=== PATIENT | male | born 1975 | race Caucasian/White ===

== ENCOUNTER 2022-11-23 12:26 | Emergency (ER) | payer OTHER, SELFPAY ==
[2022-11-23] VITALS (8 sets, daily range): BP systolic 122–203; BP diastolic 90–128; PULSE 58–71; RESP 12–21; TEMP 36.6; O2SAT 100; BMI 31.8
--- NOTE | 2022-11-23 12:48 | ECG_ITS ---
[facility] Test Date: 2022-11-23 Pat Name: Ruben Claros Department: Room: - Gender: Male [employer]: : 1975 Requested By: [id number] Order Number: [id number] Reading MD: MAIRA MAN Measurements Intervals [place] Rate: 60 P: 23 NC: 240 QRS: 101 QRSD: 88 T: 4 QT: 418 QTc: 419 Interpretive Statements 1100 Sinus rhythm 2231 First degree AV block 7100 Abnormal right axis deviation Non-Specific T wave inversion in III 9150 abnormal ECG Compared to ECG 11/23/2022 13:04:36 Right-axis deviation now present Ventricular premature complex(es) no longer present Electronically Signed On 11-24-2022 6:51:28 EDT by MAIRA MAN
--- NOTE | 2022-11-23 12:49 | ED_ITS ---
HPI - General Adult General Chief complaint: Chest Pain Stated complaint: HIGH BLOOD PRESSURE Time Seen by Provider: 11/23/22 12:47 Source: patient Mode of arrival: walk-in History of Present Illness HPI narrative: patient here for evaluation of high blood pressure. He says been struggling with good blood pressure control for over twenty years. He stopped taking one medications that was prescribed in May by his PCP. He continues to take his beta owen. He is not use any [id number] beta stimulants. He avoids heavy caffeine products. He is pretty healthy and does not use much salt. He has not had a known history of cardiac, renal or central nervous system problems. He just can tell was blood pressures elevated because he just doesn't have the same energy. He does admit to using generous amounts of alcoholic products over the weekend. He is not having any shortness of breath or swelling of his legs. He's not had any blood work done for over a year and a half. His blood pressure was checked manually and his diastolics are near one twenty. Any confusion or headache or focal neurological symptomatology or deficits. Related Data Home Medications Medication Instructions Recorded Confirmed metoprolol succinate 100 mg 100 mg PO Q12H 11/23/22 11/23/22 tablet,extended release 24 hr Allergies Allergy/AdvReac Type Severity Reaction Status Date / Time No Known Drug Allergies Allergy Verified 11/23/22 12:37 Exam Narrative Exam Narrative: awake alert oriented ?3 blood pressure as noted. He's here with his . He admits to being highly anxious about this whole situation. HEENT shows eyes ears nose and throat to be grossly normal. Neck examination soft and supple no meningeal irritation no carotid bruits on either side. Respiratory his lungs are completely clear with no wheezes rales or rhonchi Cardio shows no clicks rubs or murmur. Extremities show no incident deep vein thrombosis phlebitis or edema. Back shows no evidence of bruises contusions or injury. Constitutional Vital Signs - 24 hr 11/23/22 12:31 11/23/22 09:58 11/23/22 12:32 Temperature 98 F Pulse Rate 58 L Pulse Rate [Monitor] 59 L Respiratory Rate 20 18 Blood Pressure 122/90 H 196/120 H Blood Pressure [Right Arm] 188/120 H Pulse Oximetry 100 Oxygen Delivery Method Room Air 11/23/22 13:06 11/23/22 13:06 11/23/22 13:15 Temperature Pulse Rate 60 70 Pulse Rate [Monitor] Respiratory Rate 14 21 Blood Pressure 185/128 H 185/128 H 203/109 H Blood Pressure [Right Arm] Pulse Oximetry Oxygen Delivery Method 11/23/22 13:29 11/23/22 13:30 11/23/22 13:45 Temperature Pulse Rate 71 64 64 Pulse Rate [Monitor] Respiratory Rate 13 15 12 Blood Pressure 173/119 H 160/107 H 141/104 H Blood Pressure [Right Arm] Pulse Oximetry Oxygen Delivery Method Course Vital Signs Vital signs: Vital Signs Blood Pressure 122/90 H 11/23/22 09:58 Temperature 98 F 11/23/22 12:31 Pulse Rate 64 11/23/22 13:45 Respiratory Rate 12 11/23/22 13:45 Blood Pressure 141/104 H 11/23/22 13:45 Pulse Oximetry 100 11/23/22 12:31 Oxygen Delivery Method Room Air 11/23/22 12:31 Medical Decision Making MDM Narrative Medical decision making narrative: patient here with elevation of his blood pressure at home. He was not able to take a 2nd blood pressure med prescribed May this year but is not related to his primary care yet. His EKG is normal and his urinalysis does not show any adrenergic agents. His kidney function tests are pending. He does feel better after giving him one dose of labetalol here. We had an extensive discussion about the need to be confirmative about taking care of himself with blood pressure checked on a daily basis and recording for his primary care doctor. He already avoid salt and has a pretty healthy diet. We want him to moderate alcohol intake. Lab Data Labs: Lab Results 11/23/22 Range/Units 13:09 WBC 6.7 (4.0-11.0) 10^3/uL RBC 5.10 (4.70-6.10) 10^6/uL Hgb 17.0 (14.0-18.0) g/dL Hct 47.2 (42.0-54.0) % MCV 92.5 (80.0-94.0) fL MCH 33.3 (25.9-34.0) pg MCHC 36.0 H (29.9-35.2) g/dL RDW 11.6 (11.0-15.0) % Plt Count 251 (150-450) 10^3/uL MPV 9.9 (9.5-13.5) fL Neut % (Auto) 55.0 (43.0-75.0) % Lymph % (Auto) 23.1 (20.5-60.0) % [place] % (Auto) 18.5 H (1.7-12.0) % Eos % (Auto) 1.9 (0.9-7.0) % Baso % (Auto) 0.6 (0.2-2.0) % Neut # (Auto) 3.7 (1.4-6.5) 10^3/uL Lymph # (Auto) 1.6 (1.2-3.8) 10^3/uL [place] # (Auto) 1.2 H (0.3-0.8) 10^3/uL Eos # (Auto) 0.1 (0.0-0.7) 10^3/uL Baso # (Auto) 0.0 (0.0-0.1) 10^3/uL Abs Immat Gran (auto) 0.06 H (0.00-0.03) 10^3/uL Imm/Tot Granulo (auto) 0.9 H (0.0-0.5) % Sodium 130 L (136-145) mmol/L Potassium 4.4 (3.5-5.1) mmol/L Chloride 95 L (98-107) mmol/L Carbon Dioxide 26.8 (21.0-32.0) mmol/L Anion Gap 12.6 BUN 13.0 (7.0-18.0) mg/dL Creatinine 1.08 (0.70-1.30) mg/dL Est GFR ( Amer) >60 (>=60) Est GFR (Non-Af Amer) >60 (>=60) BUN/Creatinine Ratio 12.0 Glucose 145 H (74-106) mg/dL Calcium 9.1 (8.5-10.1) mg/dL Troponin I High Sens <4.0 L (4.0-76.1) pg/mL Urine Opiates Screen Negative (NEGATIVE) Ur Buprenorphine Scrn Negative (NEGATIVE) Ur Oxycodone Screen Negative (NEGATIVE) Urine Methadone Screen Negative (NEGATIVE) Ur Propoxyphene Screen Negative (NEGATIVE) Ur Barbiturates Screen Negative (NEGATIVE) U Tricyclic Antidepress Negative (NEGATIVE) Ur Phencyclidine Scrn Negative (NEGATIVE) Ur Amphetamines Screen Negative (NEGATIVE) U Methamphetamines Scrn Negative (NEGATIVE) U Benzodiazepines Scrn Negative (NEGATIVE) Urine Cocaine Screen Negative (NEGATIVE) U Cannabinoids Screen Negative (NEGATIVE) Discharge Plan Discharge Chief Complaint: Chest Pain Clinical Impression: Hypertension Patient Disposition: Home, Self-Care Time of Disposition Decision: 14:00 Prescriptions / Home Meds: No Action metoprolol succinate 100 mg tablet extended release 24 hr 100 mg PO Q12H Instructions: Hypertension (ED) Additional Instructions: see her doctor this week so he can decide if secondary therapy will be necessary Stand Alone Forms: Portal Instructions Referrals: Heladio Noriega MD [Primary Care Provider] - 1 week
[2022-11-23 13:21] LABS: Basophils Percent Auto 0.6 % (0.2-2.0); Eosinophils Absolute Auto 0.1 10^3/uL (0.0-0.7); Eosinophils Percent Auto 1.9 % (0.9-7.0); Hematocrit 47.2 % (42.0-54.0); Immature Granulocytes Abs Auto 0.06 10^3/uL (0.00-0.03); Immature Granulocytes Pct Auto 0.9 % (0.0-0.5); Lymphocytes Absolute Auto 1.6 10^3/uL (1.2-3.8); Lymphocytes Percent Auto 23.1 % (20.5-60.0); Mean Corpuscular Hemoglobin 33.3 pg (25.9-34.0); Mean Corpuscular Volume 92.5 fL (80.0-94.0); Mean Platelet Volume 9.9 fL (9.5-13.5); Monocytes Absolute Auto 1.2 10^3/uL (0.3-0.8); Monocytes Percent Auto 18.5 % (1.7-12.0); Neutrophils Absolute Auto 3.7 10^3/uL (1.4-6.5); Platelet Count 251 10^3/uL (150-450); Red Cell Distribution Width 11.6 % (11.0-15.0); White Blood Count 6.7 10^3/uL (4.0-11.0)
[2022-11-23] MEDS: LABETALOL HCL 20 MG/4 ML SYRINGE IVP (13:31)
[2022-11-23 13:39] LABS: Anion Gap 12.6; Calcium 9.1 mg/dL (8.5-10.1); Carbon Dioxide 26.8 mmol/L (21.0-32.0); Chloride 95 mmol/L (98-107); Estimated GFR (African America >60 (>=60); Estimated GFR (Non-African Ame >60 (>=60); Glucose 145 mg/dL (74-106); Potassium 4.4 mmol/L (3.5-5.1); Sodium 130 mmol/L (136-145); Troponin I High Sensitivity <4.0 pg/mL (4.0-76.1)
[2022-11-23 13:41] LABS: Cannabinoid Screen Urine NEGATIVE (NEGATIVE)
[2022-11-23 13:42] LABS: Amphetamine Screen Urine NEGATIVE (NEGATIVE); Barbiturates Screen Urine NEGATIVE (NEGATIVE); Benzodiazepines Screen Urine NEGATIVE (NEGATIVE); Buprenorphine Screen Urine NEGATIVE (NEGATIVE); Cocaine Screen Urine NEGATIVE (NEGATIVE); Methadone Screen Urine NEGATIVE (NEGATIVE); Methamphetamines Screen Urine NEGATIVE (NEGATIVE); Opiate Screen Urine NEGATIVE (NEGATIVE); Oxycodone Screen Urine NEGATIVE (NEGATIVE); Phencyclidine Screen Urine NEGATIVE (NEGATIVE); Tricyclic Antidepressant Urine NEGATIVE (NEGATIVE)
[2022-11-23 13:47] LABS: Bilirubin Urine NEGATIVE (NEGATIVE); Blood Urine NEGATIVE (NEGATIVE); Clarity Urine CLEAR (CLEAR); Color Urine YELLOW (YELLOW); Glucose Urine UA NEGATIVE (NEGATIVE); Ketones Urine NEGATIVE (NEGATIVE); Leukocyte Esterase Urine SMALL (NEGATIVE); Nitrite Urine NEGATIVE (NEGATIVE); Protein Urine NEGATIVE (NEG/TRACE); pH Urine 7.5 (5.0-9.0)
[2022-11-23 14:00] LABS: Bacteria Urine NONE SEEN #/HPF (NONE SEEN); Cast Seen? NONE SEEN #/LPF (NONE SEEN); Crystals Seen? None Seen #/HPF (None Seen); Mucus Urine TRACE (NONE SEEN); RBC Urine 0-2 #/HPF (0-2); Squamous Epithelial Cell Urine RARE #/LPF (NONE/RARE)
== END 2022-11-23 14:07 | disposition home or self-care (01) ==
PROVIDERS: Emergency Provider Emergency Medicine Emergency Medical Services; PCP Family Medicine
DX: I10 Essential (primary) hypertension (principal); Z79.899 Other long term (current) drug therapy
CPT/HCPCS: 36415; 80048; 80307; 81001; 84484; 85025; 93005; 96374; 99284